=== PATIENT | male | born 1950 | race Caucasian/White ===

== ENCOUNTER 2020-12-10 18:34 | Emergency (ER) | payer BC, MEDICARE ==
[2020-12-10] MEDS ORDERED: Famotidine 20 MG/2 ML SDV IVPUSH ONE (19:12)
[2020-12-10] MEDS ORDERED: methylPREDNISolone Sodium Succinate 125 MG/2 ML SDV IVPUSH ONE (19:12)
[2020-12-10] MEDS ORDERED: Sodium Chloride 0.9% 10 ML Syringe FLUSH PRN (19:12)
--- NOTE | 2020-12-10 19:18 | EDM.PDOC ---
ED HPI GENERAL MEDICAL PROBLEM - General Chief Complaint: Allergic Reaction Stated Complaint: RASH ALL OVER BODY Time Seen by Provider: 12/10/20 19:04 Source of Information: Reports: Patient, RN Notes Reviewed History Limitations: Reports: No Limitations - History of Present Illness INITIAL COMMENTS - FREE TEXT/NARRATIVE: Patient is a 70-year-old male who presents to the ER for evaluation of his allergic reaction. Patient states that he was eating a baby spinach salad mix, at around 6 PM. Notes that he is eaten at this type of spinach mix before and has not reacted. He developed all over body hives, over his chest, arms, legs and feet. States that it is somewhat itchy, and he did take a cool bath/shower to see if this would help. He has not changed any deodorants, shampoos, or otherwise prior to this. He is denying any respiratory difficulty, or shortness of breath at this time. Patient is from [place], notes that he had a recent checkup with his primary care provider and everything was within normal limits. Patient denies any other sick-like symptoms, fever/chills, cough/shortness of breath, nausea/vomiting/diarrhea. Generalized Pain Score (Numeric/FACES): 6 - Related Data Allergies Allergy/AdvReac Type Severity Reaction Status Date / Time diphenhydramine Allergy Severe Hyperactivi Verified 12/10/20 18:53 [From Benadryl] ty Home Meds: Home Meds Modafinil [Provigil] 200 mg PO DAILY 12/10/20 [History] predniSONE 20 mg PO ASDIRECTED #15 tab 12/10/20 [Rx] Past Medical History HEENT History: Reports: Impaired Vision Respiratory History: Reports: Sleep Apnea Musculoskeletal History: Reports: Arthritis Oncologic (Cancer) History: Reports: Other (See Below) Other Oncologic History: polyps from colon - Infectious Disease History Infectious Disease History: Reports: Measles - Past Surgical History HEENT Surgical History: Reports: Myringotomy w Tube(s) Social & Family History - Family History Family Medical History: No Pertinent Family History - Tobacco Use Tobacco Use Status *Q: Never Tobacco User Second Hand Smoke Exposure: No - Caffeine Use Caffeine Use: Reports: Soda - Recreational Drug Use Recreational Drug Use: No ED ROS ALLERGIC REACTION - Review of Systems Review Of Systems: Comprehensive ROS is negative, except as noted in HPI. ED EXAM GENERAL NO PERIP PULSE - Physical Exam Exam: See Below Exam Limited By: No Limitations General Appearance: Alert, WD/WN, No Apparent Distress Respiratory/Chest: No Respiratory Distress, Lungs Clear, Normal Breath Sounds, No Accessory Muscle Use, Chest Non-Tender Cardiovascular: Normal Peripheral Pulses, Regular Rate, Rhythm, No Edema GI/Abdominal: Normal Bowel Sounds, Soft, Non-Tender, No Distention, No Mass Extremities: Normal Inspection, Normal Capillary Refill Neurological: Alert, Oriented, Normal Cognition, No Motor/Sensory Deficits Psychiatric: Normal Affect, Normal Mood Skin Exam: Warm, Dry, Intact, Normal Color, Other (Multiple raised macule-like lesions, consistent with hives. This is very pruritic.) Course - Vital Signs Last Recorded V/S: Last Vital Signs Temp 97 F 12/10/20 18:46 Pulse 57 L 12/10/20 18:46 Resp 18 12/10/20 18:46 BP 132/74 12/10/20 18:46 Pulse Ox 97 12/10/20 18:46 - Orders/Labs/Meds Orders: Active Orders 24 hr Category Date Time Status Peripheral IV Care [RC] . DIRECTED Care 12/10/20 19:12 Ordered Sodium Chloride 0.9% [Saline Flush] Med 12/10/20 19:12 Active 10 ml FLUSH ASDIRECTED PRN Peripheral IV Insertion Adult [OM.PC] Stat Oth 12/10/20 19:12 Ordered Medication Orders Sodium Chloride (Sodium Chloride 0.9% 10 Ml Syringe) 10 ml FLUSH ASDIRECTED PRN PRN Reason: Keep Vein Open Last Admin: 12/10/20 19:27 Dose: 10 ml Documented by: DIDI Meds: Medications Generic Name Dose Route Start Last Admin Trade Name Freq PRN Reason Stop Dose Admin Sodium Chloride 10 ml 12/10/20 19:12 12/10/20 19:27 Sodium Chloride 0.9% 10 Ml Syringe FLUSH 10 ml ASDIRECTED PRN Administration Keep Vein Open Discontinued Medications Generic Name Dose Route Start Last Admin Trade Name Freq PRN Reason Stop Dose Admin Famotidine 20 mg 12/10/20 19:12 12/10/20 19:27 Famotidine 20 Mg/2 Ml Sdv IVPUSH 12/10/20 19:13 20 mg ONETIME ONE Administration Methylprednisolone Sodium Succinate 125 mg 12/10/20 19:12 12/10/20 19:27 Methylprednisolone Sodium Succinate 125 Mg/2 Ml Sdv IVPUSH 12/10/20 19:13 125 mg ONETIME ONE Administration - Re-Assessments/Exams Free Text/Narrative Re-Assessment/Exam: 12/10/20 19:16 Patient presents to the ER for the evaluation of his allergic reaction, we will go ahead and get IV started, give him some Solu-Medrol, and Pepcid for initial m anagement. Patient has an allergy to Benadryl, so does not want this med given to him. Plan would be to send the patient home with oral steroid burst, and general recommendations. 12/10/20 20:23 Patient is feeling better, we will go ahead and discharge him home with general recommendations and a prescription for a steroid burst. Departure - Departure Time of Disposition: 20:23 Disposition: Home, Self-Care 01 Condition: Good Clinical Impression: Allergic reaction Qualifiers: Encounter type: initial encounter Qualified Code(s): T78.40XA - Allergy, unspecified, initial encounter - Discharge Information *PRESCRIPTION DRUG MONITORING PROGRAM REVIEWED*: No *COPY OF PRESCRIPTION DRUG MONITORING REPORT IN PATIENT NETTE: No Prescriptions: predniSONE 20 mg PO ASDIRECTED #15 tab Instructions: Allergies, Adult, [id number] Referrals: PCP,Not In Area [Primary Care Provider] - Forms: ED Department Discharge Additional Instructions: You were seen in the ER today for your suspected allergic reaction. This is thought to possibly be due to the ingestion of spinach at your supper tonight. You were given some IV medications to help relieve these symptoms, this seemed to work well for you. This included IV steroids and IV Pepcid. You will be started on a steroid burst, please take as directed until gone. Recommend you obtain a medication like Zyrtec (cetirizine) or Bernie (fexofenadine) and take per fisher seal instructions on the box for ongoing management. You may also take 20 mg Pepcid daily while using the prednisone. This medication was electronically sent to the [place] [facility] located in the [facility]. Please return to the ER at any time if your symptoms change or worsen. Sepsis Event Note (ED) - Evaluation Sepsis Screening Result: No Definite Risk - Focused Exam Vital Signs: Vital Signs Temp Pulse Resp BP Pulse Ox 12/10/20 18:46 97 F 57 L 18 132/74 97 - My Orders Last 24 Hours: My Active Orders 12/10/20 19:12 Peripheral IV Care [RC] . DIRECTED Sodium Chloride 0.9% [Saline Flush] 10 ml FLUSH ASDIRECTED PRN Peripheral IV Insertion Adult [OM.PC] Stat - Assessment/Plan Last 24 Hours: My Active Orders 12/10/20 19:12 Peripheral IV Care [RC] . DIRECTED Sodium Chloride 0.9% [Saline Flush] 10 ml FLUSH ASDIRECTED PRN Peripheral IV Insertion Adult [OM.PC] Stat
== END 2020-12-10 20:35 | disposition home or self-care (01) ==
LOC: JD.ED 18:34
DX: T78.1XXA Other adverse food reactions, not elsewhere classified, initial encounter (principal); M19.90 Unspecified osteoarthritis, unspecified site; Z88.8 Allergy status to other drugs, medicaments and biological substances; Z79.899 Other long term (current) drug therapy
CPT/HCPCS: 96374; 96375; 99283; J2930; J3490